=== PATIENT | male | born 1945 | race Caucasian/White ===

== ENCOUNTER 2016-04-27 10:45 | Outpatient (RCR) | payer MEDICARE, OTHER, MEDICAID ==
[~2016-04-27 10:45] MED LIST: ATROVENTNS0.03% NS; CENTRUM SAW PA160 MG PO; DESYREL 50MG50 MG PO; FLONASEALLERGY NS; FLOVENT DI100 MCG/Ac; HYTRIN 5MG C5 MG/CAP PO; HYTRIN10 M1 PO; LEVOXYL0.1 MG PO; MIRAPEX0.5 MG PO; MOBIC15 MG PO; PRILOSEC 20MG20 MG PO; PRILOSEC10 MG; PROSVENT PO; RESTASIS0.05% OP; SALAGEN 5MG TAB5 MG PO; SAW PALMETTO6 X; SINEMET 25/101 UDTAB PO; TIROSINT112 MC1 PO; TOPROL XL 25MG25 MG PO; TOPROL XL 50MG50 MG PO; ZANTAC 150150 MG PO
== END 2016-05-24 09:27 | disposition still patient (30) ==
LOC: WSST 10:45
DX: R13.10 Dysphagia, unspecified (principal)
CPT/HCPCS: G8996-GN; G8997-GN

== ENCOUNTER 2016-05-18 11:15 | Outpatient (RCR) | payer MEDICARE, OTHER, MEDICAID | END 2016-05-24 09:03 | disposition still patient (30) | LOC: MKS.ESL.PT 11:15 | DX: R13.19 Other dysphagia (principal); R47.1 Dysarthria and anarthria; M21.371 Foot drop, right foot | CPT/HCPCS: G0283-GP; G8978-GP; G8979-GP ==

== ENCOUNTER 2016-08-09 10:30 | Outpatient (RCR) | payer MEDICARE, OTHER | END 2016-08-22 | disposition home or self-care (01) | LOC: WSST | DX: R13.10 Dysphagia, unspecified (principal) ==

== ENCOUNTER 2016-08-10 10:30 | Outpatient (RCR) | payer MEDICARE, OTHER | END 2016-08-10 15:06 | disposition home or self-care (01) | LOC: MKS.ESL.PT 10:30 | DX: M21.371 Foot drop, right foot (principal) | CPT/HCPCS: G8978-GP; G8979-GP; G8980-GP ==

== ENCOUNTER 2016-10-11 14:00 | Outpatient (RCR) | payer MEDICARE, OTHER | END 2016-11-21 | disposition home or self-care (01) | LOC: WSST | DX: F80.9 Developmental disorder of speech and language, unspecified (principal); R13.10 Dysphagia, unspecified ==

== ENCOUNTER 2017-01-11 10:15 | Outpatient (RCR) | payer MEDICARE, OTHER | END 2017-02-20 | disposition home or self-care (01) | LOC: WSST | DX: R13.12 Dysphagia, oropharyngeal phase (principal); R47.1 Dysarthria and anarthria ==

== ENCOUNTER 2017-05-15 12:30 | Outpatient (RCR) | payer MEDICARE, OTHER | END 2017-05-23 | disposition home or self-care (01) | LOC: WSST | DX: R13.12 Dysphagia, oropharyngeal phase (principal); F80.89 Other developmental disorders of speech and language ==

== ENCOUNTER 2017-10-09 10:00 | Outpatient (RCR) | payer MEDICARE, OTHER | END 2017-10-25 | disposition home or self-care (01) | LOC: WSST | DX: R13.10 Dysphagia, unspecified (principal) | CPT/HCPCS: G8996-GN; G8997-GN ==

== ENCOUNTER 2018-02-28 08:45 | Outpatient (RCR) | payer MEDICARE, OTHER | END 2018-03-04 | disposition still patient (30) | LOC: WSST | DX: R47.1 Dysarthria and anarthria (principal); R13.12 Dysphagia, oropharyngeal phase; M21.371 Foot drop, right foot; R29.898 Other symptoms and signs involving the musculoskeletal system; Z91.81 History of falling | CPT/HCPCS: G8978-GP; G8979-GP; G8996-GN; G8997-GN ==

== ENCOUNTER 2018-04-25 09:15 | Outpatient (RCR) | payer MEDICARE, OTHER | END 2018-06-03 | disposition home or self-care (01) | LOC: MKS.ESL.PT | DX: M21.371 Foot drop, right foot (principal); R29.898 Other symptoms and signs involving the musculoskeletal system; R13.10 Dysphagia, unspecified | CPT/HCPCS: G8978-GP; G8979-GP ==

== ENCOUNTER 2018-09-05 08:15 | Outpatient (RCR) | payer MEDICARE, OTHER | END 2018-09-06 | disposition home or self-care (01) | LOC: MKS.ESL.PT | DX: M21.371 Foot drop, right foot (principal); R53.1 Weakness ==

== ENCOUNTER 2018-11-28 13:00 | Outpatient (RCR) | payer MEDICARE, OTHER | END 2018-12-17 | disposition still patient (30) | LOC: MKS.ESL.PT | DX: R13.12 Dysphagia, oropharyngeal phase (principal); R47.1 Dysarthria and anarthria; M21.371 Foot drop, right foot; R53.1 Weakness ==

== ENCOUNTER 2018-12-27 11:19 | Outpatient (CLI) | payer MEDICARE, OTHER ==
[~2018-12-27] VITALS: Ht 175.3 cm; Wt 68.7 kg
[2018-12-27 12:00] VITALS: BP 160/97; PULSE 79; TEMP 98.3
--- NOTE | 2018-12-27 14:05 | NUR ---
Pt escortedout via wheelchair to his vehicle by this nurse.
== END 2018-12-27 14:06 | disposition home or self-care (01) ==
LOC: EUO 11:19
DX: J02.9 Acute pharyngitis, unspecified (principal)
CPT/HCPCS: J1100; J7121

== ENCOUNTER 2019-03-27 12:45 | Outpatient (RCR) | payer MEDICARE, OTHER | END 2019-04-03 | disposition home or self-care (01) | LOC: MKS.ESL.PT | DX: M21.371 Foot drop, right foot (principal); R53.1 Weakness; R47.1 Dysarthria and anarthria; R13.12 Dysphagia, oropharyngeal phase ==

== ENCOUNTER 2019-09-25 10:00 | Outpatient (RCR) | payer MEDICARE | END 2019-10-16 | disposition home or self-care (01) | LOC: MKS.ESL.PT | DX: M21.371 Foot drop, right foot (principal); R53.1 Weakness; R13.12 Dysphagia, oropharyngeal phase; R47.1 Dysarthria and anarthria ==

== ENCOUNTER 2020-01-29 13:45 | Outpatient (RCR) | payer MEDICARE | END 2020-02-06 | disposition home or self-care (01) | LOC: MKS.ESL.PT | DX: M21.371 Foot drop, right foot (principal) ==

== ENCOUNTER 2020-04-30 13:00 | Outpatient (RCR) | payer MEDICARE | END 2020-05-04 | disposition home or self-care (01) | LOC: MKS.ESL.PT | DX: M21.371 Foot drop, right foot (principal) ==

== ENCOUNTER 2020-07-21 13:15 | Outpatient (RCR) | payer MEDICARE | END 2020-08-03 | disposition home or self-care (01) | LOC: MKS.ESL.PT | DX: R13.10 Dysphagia, unspecified (principal); R47.1 Dysarthria and anarthria ==

== ENCOUNTER 2020-10-27 12:30 | Outpatient (RCR) | payer MEDICARE | END 2020-11-02 | disposition home or self-care (01) | LOC: MKS.ESL.PT | DX: M21.371 Foot drop, right foot (principal); R53.1 Weakness ==

== ENCOUNTER 2021-02-03 13:15 | Outpatient (RCR) | payer MEDICARE, OTHER | END 2021-02-08 | disposition home or self-care (01) | LOC: MKS.ESL.PT | DX: M21.371 Foot drop, right foot (principal); R53.1 Weakness ==

== ENCOUNTER 2021-04-27 15:45 | Outpatient (RCR) | payer MEDICARE | END 2021-04-30 | disposition home or self-care (01) | LOC: MKS.ESL.PT | DX: M21.371 Foot drop, right foot (principal) ==

== ENCOUNTER 2021-06-22 12:45 | Outpatient (RCR) | payer MEDICARE | END 2021-06-28 | disposition home or self-care (01) | LOC: MKS.ESL.PT | DX: Z00.00 Encounter for general adult medical examination without abnormal findings (principal); M21.371 Foot drop, right foot; G51.9 Disorder of facial nerve, unspecified; R13.10 Dysphagia, unspecified ==

== ENCOUNTER 2021-06-22 12:58 | Outpatient (RCR) | payer MEDICARE | END 2021-06-28 | disposition home or self-care (01) | LOC: WSST | DX: R13.12 Dysphagia, oropharyngeal phase (principal); J38.00 Paralysis of vocal cords and larynx, unspecified ==

== ENCOUNTER 2021-07-13 10:30 | Outpatient (RCR) | payer MEDICARE | END 2021-07-29 | disposition home or self-care (01) | LOC: WSST | DX: R13.12 Dysphagia, oropharyngeal phase (principal); J38.00 Paralysis of vocal cords and larynx, unspecified; R47.1 Dysarthria and anarthria ==

== ENCOUNTER → 2021-07-29 | Outpatient (RCR) | payer MEDICARE | END | disposition home or self-care (01) | LOC: MKS.ESL.PT | DX: Z00.00 Encounter for general adult medical examination without abnormal findings (principal); M21.371 Foot drop, right foot; R53.1 Weakness; R26.89 Other abnormalities of gait and mobility; R13.10 Dysphagia, unspecified; G51.9 Disorder of facial nerve, unspecified; R29.898 Other symptoms and signs involving the musculoskeletal system ==

== ENCOUNTER 2021-08-26 14:15 | Outpatient (RCR) | payer MEDICARE | END 2021-08-28 | disposition home or self-care (01) | LOC: WSST | DX: R13.12 Dysphagia, oropharyngeal phase (principal); J38.00 Paralysis of vocal cords and larynx, unspecified ==

== ENCOUNTER 2021-08-26 14:45 | Outpatient (RCR) | payer MEDICARE | END 2021-08-28 | disposition home or self-care (01) | LOC: MKS.ESL.PT | DX: M21.371 Foot drop, right foot (principal); R53.1 Weakness ==

== ENCOUNTER 2021-09-09 14:15 | Outpatient (RCR) | payer MEDICARE | END 2021-09-28 | disposition home or self-care (01) | LOC: MKS.ESL.PT | DX: Z00.00 Encounter for general adult medical examination without abnormal findings (principal); R26.89 Other abnormalities of gait and mobility; R13.10 Dysphagia, unspecified; G51.9 Disorder of facial nerve, unspecified; R29.898 Other symptoms and signs involving the musculoskeletal system ==

== ENCOUNTER → 2021-10-28 | Outpatient (RCR) | payer MEDICARE | END | disposition home or self-care (01) | LOC: MKS.ESL.PT | DX: Z00.00 Encounter for general adult medical examination without abnormal findings (principal); M21.371 Foot drop, right foot; G51.9 Disorder of facial nerve, unspecified; R53.1 Weakness; R26.89 Other abnormalities of gait and mobility; R13.10 Dysphagia, unspecified; R29.898 Other symptoms and signs involving the musculoskeletal system ==

== ENCOUNTER 2021-11-23 14:00 | Outpatient (RCR) | payer MEDICARE | END 2021-11-28 | disposition home or self-care (01) | LOC: MKS.ESL.PT | DX: M21.371 Foot drop, right foot (principal) ==

== ENCOUNTER 2021-12-21 13:45 | Outpatient (RCR) | payer MEDICARE | END 2021-12-29 | disposition home or self-care (01) | LOC: MKS.ESL.PT | DX: M21.371 Foot drop, right foot (principal); R53.1 Weakness ==